=== PATIENT | female | born 1960 | race Caucasian/White ===

== ENCOUNTER 2020-07-09 15:24 | Outpatient (CLI) | payer OTHER, SELFPAY ==
--- NOTE | ~2020-07-09 | MM_ITS ---
EXAMINATION: MM screening jessica BI w brenda HISTORY: Screening TECHNIQUE: Craniocaudal and mediolateral oblique 3-D tomosynthesis images were obtained and synthetic 2-D images were generated. CAD analysis was submitted and interpreted. COMPARISON: Comparison to multiple prior studies sequentially, with oldest reviewed study dated 06/21. BREAST PARENCHYMAL COMPOSITION: Breast composed of scattered areas of fibroglandular density. FINDINGS: There is no evidence of suspicious mass, calcification, or architectural distortion to sugg est malignancy in either breast. There has been no suspicious interval change. IMPRESSION: 1. No mammographic evidence of malignancy. 2. Recommend routine screening mammography in one year. BI-RADS Category 1: Negative Reviewed, dictated and finalized at location A.
== END 2020-07-09 15:25 | disposition home or self-care (01) ==
PROVIDERS: PCP Family Medicine; Visit Provider Family Medicine
DX: Z12.31 Encounter for screening mammogram for malignant neoplasm of breast (principal)
CPT/HCPCS: 77063; 77067

== ENCOUNTER 2020-07-25 20:31 | Emergency (ER) | payer OTHER, SELFPAY ==
--- NOTE | ~2020-07-25 | CT_ITS ---
EXAMINATION: CT brain wo con EXAM DATE: 07/25/2020 21:33 INDICATION: Left arm paresthesia. Headache. TECHNIQUE: Spiral CT of the head was performed without contrast. Axial, coronal and sagittal images were reviewed. The dose-length product (DLP) for this examination was 605.33 mGy-cm. The exposure w as tailored according to patient size, and iterative reconstruction (ASIR) was used as additional dos e reduction technique. There is no prior study for comparison. FINDINGS: There is no acute intraparenchymal hemorrhage. No evidence of intraparenchymal brain mass lesion. No evidence of acute infarction. There is no mass effect or midline shift. The ventricles are normal in size. There are no extra-axial collections. There are no acute calvarial fractures. T he orbits are unremarkable. Soft tissue is unremarkable. The visualized sinuses and mastoid air mad[place] ls are well aerated. IMPRESSION: No acute intracranial findings. Reviewed, dictated and finalized at location A.
[2020-07-25 20:41] VITALS: BP 181/89; PULSE 85; RESP 18; TEMP 36.1; O2SAT 99
--- NOTE | 2020-07-25 21:04 | ED.EXTPRO ---
HPI - Extremity Problem General Chief complaint: Extremity Problem,Nontraumatic Stated complaint: left hand numbness Time Seen by Provider: 07/25/20 21:01 History of Present Illness HPI Narrative: Patient is a 60-year-old female complaining of left hand numbness that started prior to arrival lasting for approximately 15 to 20 minutes and now resolved. Patient denies any speech or visual disturbance, weakness, unsteady gait, chest pain, shortness of breath, abdominal pain, nausea vomiting or fever. Related Data Home Medications Medication Instructions Recorded Confirmed alprazolam 09/24/19 amitriptyline 09/24/19 fluticasone propionate INTRANASAL 09/24/19 metformin mg PO 09/24/19 metoprolol succinate PO 09/24/19 rivaroxaban [Xarelto] mg 09/24/19 cyclobenzaprine mg 07/25/20 dicyclomine mg 07/25/20 omeprazole 07/25/20 warfarin 07/25/20 Allergies Allergy/AdvReac Type Severity Reaction Status Date / Time amoxicillin AdvReac Unknown Itching Verified 07/25/20 21:39 cephalexin AdvReac Unknown Itching Verified 07/25/20 21:39 erythromycin base AdvReac Unknown itching Verified 07/25/20 21:39 midazolam AdvReac Unknown Itching Verified 07/25/20 21:39 Review of Systems Review of Systems: All systems reviewed & are unremarkable except as noted in HPI and below Constitutional: Constitutional: Denies body ache(s), Denies chills, Denies excessive sweating, Denies fatigue, Denies fever(s), Denies headache(s), Denies lethargy, Denies malaise, Denies weakness and Denies weight loss Eyes: Eyes: Denies blurry vision, Denies change in vision and Denies loss of vision ENT: Denies dizziness, Denies ear discharge, Denies headache(s), Denies lip swelling, Denies epistaxis, Denies nasal congestion, Denies neck pain, Denies throat swelling and Denies tongue swelling Cardiovascular: Cardiovascular: Denies chest pain, Denies chest pain at rest, Denies chest pain with activity, Denies diaphoresis, Denies rapid heart rate, Denies edema, Denies irregular heart rhythm, Denies lightheadedness, Denies palpitations, Denies dyspnea and Denies dyspnea on exertion Respiratory: Respiratory: Denies chest congestion, Denies cough, Denies hemoptysis, Denies dyspnea and Denies dyspnea on exertion Gastrointestinal: Gastrointestinal: Denies abdominal pain, Denies melena, Denies hematochezia, Denies diarrhea, Denies nausea, Denies vomiting and Denies hematemesis Musculoskeletal: Musculoskeletal: Denies abnormal gait, Denies deformity, Denies joint swelling, Denies limited range of motion and Denies neck pain Neurologic: Denies Abnormal speech present, Denies abnormal gait, Denies confusion, Denies dizziness, Denies headache(s), Denies focal weakness, Denies loss of vision, Denies Other visual disturbances, Denies Sensory deficit (Neuro) and Denies weakness Psychiatric: Psychiatric: Denies confusion, Denies depression, Denies auditory hallucinations, Denies homicidal ideation and Denies suicidal ideation Endocrine: Endocrine: Denies cold intolerance, Denies excessive sweating, Denies fatigue, Denies heat intolerance and Denies palpitations Hematologic/Lymphatic: Hematologic/Lymphatic: Denies easy bleeding and Denies easy bruising Allergic/Immunologic: Allergic/Immunologic: Denies lip swelling, Denies throat swelling and Denies tongue swelling [facility] Past Medical History Medical History (Updated 07/25/20 @ 22:42 by Angel Mir MD) Hypertension Prediabetes Thrombus Left kidney Surgical History Surgical History (System 05/10/20 @ 09:03 by Alfred Ford) H/O section H/O laparoscopy Related to fertility H/O tubal ligation Family History Family History (System 05/10/20 @ 09:03 by Alfred Ford) Father Hypertension Family history of elevated blood lipids Family history of diabetes mellitus in first degree relative Mother Family history of elevated blood lipids Family history of heart disease in male family member before age 55
--- NOTE | 2020-07-25 21:07 | ECG_ITS ---
Measurements Intervals [place] Rate: 77 P: 48 CT: 165 QRS: 5 QRSD: 101 T: 8 QT: 389 QTc: 441 Interpretive Statements SINUS RHYTHM VOLTAGE CRITERIA FOR LVH DELAYED PRECORDIAL R/S TRANSITION BORDERLINE T WAVE ABNORMALITY- ANT/INF LEADS BORDERLINE ECG Electronically Signed On 07-26-2020 7:05:09 CDT by Dontrell Salazar D.O.
[2020-07-25 21:43] VITALS: BP 167/94; PULSE 77; RESP 18; O2SAT 96
[2020-07-25 21:50] LABS: Basophils Absolute Auto 0.1 K/mm3 (0.0-0.1); Basophils Percent Auto 0.7 % (0.2-1.2); Eosinophils Absolute Auto 0.6 K/mm3 (0-0.3); Eosinophils Percent Auto 7.2 % (0-4.4); Hematocrit 42.9 % (37.0-47.0); Immature Granulocyte Absolute 0.03 K/mm3 (0.00-0.031); Immature Granulocyte Percent A 0.4 % (0-0.5); Lymphocytes Absolute Auto 2.45 K/mm3 (0.9-3.2); Lymphocytes Percent Auto 29.7 % (18.3-44.2); Mean Corpuscular HGB Conc 32.6 g/dl (32-36); Mean Corpuscular Volume 92.1 fl (80-100); Mean Platelet Volume 10.3 fl (7.4-10.4); Monocytes Absolute Auto 0.5 K/mm3 (0.1-0.6); Monocytes Percent Auto 6.2 % (2.6-8.5); Neutrophils Absolute Auto 4.6 K/mm3 (1.3-6.7); Neutrophils Percent Auto 55.8 % (45.5-73.1); Platelet Count Result 291 k/mm3 (150-375); Red Blood Count 4.66 M/mm3 (4.2-5.4); Red Cell Distribution Width 14.9 % (11.5-14.5); White Blood Count 8.3 K/mm3 (4.5-10.0)
[2020-07-25 22:03] LABS: Anion Gap 11 mmol/L (8-16); Blood Urea Nitrogen 18 mg/dL (7-17); Calcium 9.4 mg/dL (8.4-10.2); Carbon Dioxide 25 mmol/L (22-30); Chloride 103 mmol/L (98-107); Estimated CRCL calculation 63 ml/min; Estimated Glomerular Filt Rate > 60; Glucose 107 mg/dL (65-105); INR 1.4; Potassium 3.9 mmol/L (3.4-5.0); Prothrombin Time 16.6 Seconds (11.1-14.7); Sodium 139 mmol/L (137-145)
[2020-07-25 22:04] LABS: Partial Thromboplastin Time 37.7 SECONDS (22.3-36.8)
[2020-07-25 22:15] LABS: Troponin I < 0.012 ng/mL (0.000-0.034)
[2020-07-25 23:00] VITALS: BP 157/85; PULSE 75; RESP 14; O2SAT 94
== END 2020-07-25 23:00 | disposition home or self-care (01) ==
PROVIDERS: Emergency Provider Emergency Medicine; PCP Family Medicine
DX: R20.2 Paresthesia of skin (principal); Z79.01 Long term (current) use of anticoagulants; Z79.84 Long term (current) use of oral hypoglycemic drugs; I10 Essential (primary) hypertension; R73.03 Prediabetes; R94.31 Abnormal electrocardiogram [ECG] [EKG]
CPT/HCPCS: 36415; 70450; 80048; 84484; 85025; 85610; 85730; 93005; 99284

== ENCOUNTER 2020-08-09 16:22 | Outpatient (CLI) | payer OTHER, SELFPAY ==
--- NOTE | ~2020-08-09 | CT_ITS ---
EXAMINATION:CT lung screening DATE: 08/09/2020 16:44 INDICATION: Personal history of tobacco dependence. Current smoker with 44 pack year history. TECHNIQUE: Computed tomography (CT) of the chest was performed without intravenous contrast. Automate d exposure control and iterative reconstruction technique were employed. The dose-length product (DLP ) was 141.17 mGy-cm. COMPARISON: Chest CT 06/29/2019 FINDINGS: There is mild emphysema. There is mosaic attenuation in the lungs, likely small airways dis ease. Calcified right lung nodules and calcified right hilar and mediastinal lymph nodes are consiste nt with old granulomatous disease. There is a 6 mm nodule in right upper lobe. There are two 5 mm nod ules at the minor fissure. There is a 5 mm nodule at left major fissure. These findings are stable fr om 06/29/2019. No pleural effusion. The heart size is normal. There are coronary artery calcifications . No pericardial effusion. There is diffuse hepatic steatosis. Calcifications in the spleen are consi stent with old granulomatous disease. There is mild thoracic spondylosis. IMPRESSION: 1. Lung-RADS category 2: Benign appearance or behavior. Continue annual screening with noncontrast lo w-dose chest CT in 12 months. Reviewed, dictated and finalized at location A. ICAL POWER INSTALL TECHNICIAN IMPRESSION: 1. Lung-RADS category 2: Benign appearance or behavior. Continue annual screeni ng with noncontrast low-dose chest CT in 12 months.
== END 2020-08-09 16:23 | disposition home or self-care (01) ==
PROVIDERS: PCP Family Medicine; Visit Provider Family Medicine
DX: Z12.2 Encounter for screening for malignant neoplasm of respiratory organs (principal); Z87.891 Personal history of nicotine dependence
CPT/HCPCS: G0297

== ENCOUNTER 2020-11-06 12:26 | Outpatient (CLI) | payer OTHER, SELFPAY ==
--- NOTE | ~2020-11-06 | CT_ITS ---
EXAMINATION: CT abdomen pelvis wo con DATE: 11/06/2020 13:09 INDICATION: Left lower quadrant pain for 3 weeks TECHNIQUE: Computed tomography (CT) of the abdomen and pelvis was performed without intravenous contr ast. Automated exposure control and iterative reconstruction technique were employed. Exam dose: 676 .66 mGy-cm total exam DLP. COMPARISON: 10/27/2019 CT abdomen pelvis FINDINGS: There is some nodes along the minor fissure, likely benign. Calcified right hilar and media stinal nodes, consistent with old granulomatous disease. Chronic mild lateral left basilar lower lobe discoid scarring. No infiltrate or consolidation in the lower lung zones. Normal heart size. No pericardial or pleural effusion. There is hepatic steatosis with minimal pericholecystic sparing. No hepatic space-occupying mass lesi on is evident. No bile duct or pancreatic duct dilatation. No pancreatic mass lesion or calcification . There are occasional splenic calcified granulomas. No splenomegaly. Normal morphology of the adrenal glands. No renal mass lesion or urinary tract calculus or hydroureteronephrosis is evident. The urinary bladd er, uterus and adnexal areas are unremarkable. Normal caliber of the abdominal aorta. Retroaortic left renal vein. No intraperitoneal or retroperito seema or pelvic mass lesion or adenopathy or ascites. Normal appendix. Minimal sigmoid diverticulosis; no CT evidence of diverticulitis. No bowel obstruction, bowel wall th ickening, pneumatosis or intraperitoneal free air. No suspicious osteolytic or osteoblastic lesions. IMPRESSION: Hepatic steatosis Minimal sigmoid diverticulosis Reviewed, dictated and finalized at Location A. Reviewed, dictated and finalized at location A. ESS WORKER
== END 2020-11-06 12:27 | disposition home or self-care (01) ==
PROVIDERS: Family Provider Family Medicine; PCP Family Medicine; Visit Provider Family Medicine
DX: R10.9 Unspecified abdominal pain (principal); K76.0 Fatty (change of) liver, not elsewhere classified; K57.30 Diverticulosis of large intestine without perforation or abscess without bleeding
CPT/HCPCS: 74176

== ENCOUNTER 2020-11-10 18:31 | Emergency (ER) | payer OTHER, SELFPAY ==
[2020-11-10] VITALS (37 sets, daily range): BP systolic 116–157; BP diastolic 61–80; PULSE 65–88; RESP 12–28; TEMP 36.2; O2SAT 93–99
--- NOTE | ~2020-11-10 | CT_ITS ---
EXAMINATION: CTA brain carotid DATE: 11/10/2020 20:22 TESTING TECH INDICATION: Dizziness. Double vision. TECHNIQUE: Computed tomographic angiography (CTA) of the head was performed without and with 100 mL O mnipaque-350 intravenous contrast. CTA of the neck was performed with intravenous contrast. The dose- length product was 1012.35 mGy-cm. Maximum intensity projection and volume rendered 3D-reconstruction s were created by the technologist on a separate workstation. COMPARISON: CT head dated 11/10/2020. FINDINGS: HEAD CTA: There is atherosclerosis of the intracranial arteries without significant stenosis, occlusi on or aneurysm. Vertebral arteries are symmetric. NECK CTA: There is atherosclerosis of the aortic arch. There are atherosclerotic changes of the carot id bulbs bilaterally. No evidence for carotid dissection or occlusion. Vertebral arteries are symmetr ic. No lymphadenopathy. There are emphysematous changes in the lung apices. There is 35% stenosis of the proximal right internal carotid artery relative to normal distal artery lumen diameter (NASCET criteria). There is 60% stenosis of the proximal left internal carotid artery relative to normal distal artery lumen diameter. IMPRESSION: 1. 35% stenosis of the proximal right internal carotid artery relative to normal distal artery lumen diameter (NASCET criteria). 2. 60% stenosis of the proximal left internal carotid artery relative to normal distal artery lumen d iameter. 3: No evidence for significant stenosis, occlusion or aneurysm of the intracranial arteries. Reviewed, dictated and finalized at location A. ING TECH IMPRESSION: 1. 35% stenosis of the proximal right internal carotid artery relative to yayo l distal artery lumen diameter (NASCET criteria). 2. 60% stenosis of the proximal left internal carotid artery relative to normal distal artery lumen diameter. 3: No evidence for significant stenosis, occlusion or aneurysm of the intracran ial arteries.
--- NOTE | ~2020-11-10 | CT_ITS ---
EXAMINATION: CT brain wo con DATE: 11/10/2020 19:42 INDICATION: Dizziness TECHNIQUE: Computed tomography (CT) of the head was performed without intravenous contrast. The dose- length product was 605.33 mGy-cm. Automated exposure control and iterative reconstruction technique w ere employed. COMPARISON: CT dated 07/25/2020 FINDINGS: No acute intracranial hemorrhage, infarction, mass or mass effect. No ventriculomegaly or m idline shift. Basilar cisterns are patent. There is intracranial atherosclerosis. Normal ramos-white d ifferentiation. Paranasal sinuses and mastoids are pneumatized. No depressed skull fractures. No depr essed skull fractures. Midline sagittal images are unremarkable. There is intracranial atherosclerosi s. IMPRESSION: 1. No acute intracranial abnormality. Reviewed, dictated and finalized at location A. HER LIP READING
--- NOTE | ~2020-11-10 | XR_ITS ---
EXAMINATION: XR chest 2V 11/10/2020 19:13 INDICATION: Dizziness PROCEDURE: AP and lateral views of the chest COMPARISON: 07/29/2018 FINDINGS: The lungs are clear. The cardiomediastinal silhouette is within normal limits. There are no pleural effusions. There is no pneumothorax suspected. IMPRESSION: 1: NO ACUTE CARDIOPULMONARY DISEASE. Reviewed, dictated and finalized at location A. SS REPRESENTATIVE
--- NOTE | 2020-11-10 18:40 | ECG_ITS ---
Measurements Intervals [place] Rate: 73 P: 30 CO: 149 QRS: 9 QRSD: 96 T: 34 QT: 390 QTc: 430 Interpretive Statements SINUS RHYTHM VOLTAGE CRITERIA FOR LVH BORDERLINE ST-T WAVE ABNORMALITY- ANTERIOR LEADS BASELINE WANDER- I, II, III, V4-V6 BORDERLINE ECG Electronically Signed On 11-10-2020 19:24:44 LOCAL AREA NETWORK SYSTEMS ADMINSTRATOR by Dontrell Salazar D.O.
[2020-11-10 18:51] LABS: Basophils Absolute Auto 0.1 K/mm3 (0.0-0.1); Basophils Percent Auto 0.7 % (0.2-1.2); Eosinophils Absolute Auto 0.6 K/mm3 (0-0.3); Eosinophils Percent Auto 6.1 % (0-4.4); Hematocrit 49.6 % (37.0-47.0); Hemoglobin 16.1 g/dL (12.0-15.0); Immature Granulocyte Absolute 0.04 K/mm3 (0.00-0.031); Immature Granulocyte Percent A 0.4 % (0-0.5); Lymphocytes Absolute Auto 2.75 K/mm3 (0.9-3.2); Lymphocytes Percent Auto 27.3 % (18.3-44.2); Mean Corpuscular HGB Conc 32.5 g/dl (32-36); Mean Corpuscular Hemoglobin 29.4 pg (26-34); Mean Corpuscular Volume 90.5 fl (80-100); Mean Platelet Volume 10.6 fl (7.4-10.4); Monocytes Absolute Auto 0.6 K/mm3 (0.1-0.6); Monocytes Percent Auto 5.8 % (2.6-8.5); Neutrophils Percent Auto 59.7 % (45.5-73.1); Platelet Count Result 276 k/mm3 (150-375); Red Blood Count 5.48 M/mm3 (4.2-5.4); Red Cell Distribution Width 15.6 % (11.5-14.5); White Blood Count 10.1 K/mm3 (4.5-10.0)
[2020-11-10 19:03] LABS: Alanine Aminotransferase 264 U/L (4-35); Albumin Level 4.5 g/dL (3.5-5.1); Alkaline Phosphatase 151 U/L (38-126); Anion Gap 6 mmol/L (8-16); Aspartate Amino Transferase 115 U/L (14-36); Bilirubin,Total 0.8 mg/dL (0.2-1.3); Blood Urea Nitrogen 19 mg/dL (7-17); Calcium 9.6 mg/dL (8.4-10.2); Carbon Dioxide 27 mmol/L (22-30); Chloride 105 mmol/L (98-107); Estimated CRCL calculation 57 ml/min; Estimated Glomerular Filt Rate > 60; Glucose 138 mg/dL (65-105); Potassium 4.2 mmol/L (3.4-5.0); Sodium 138 mmol/L (137-145)
[2020-11-10] MEDS: SODIUM CHLORIDE 0.9% IV 1,000 ML 999 ML IV CONT ×2 (19:03→21:30)
[2020-11-10 19:14] LABS: Troponin I < 0.012 ng/mL (0.000-0.034)
--- NOTE | 2020-11-10 19:25 | ED.DIZZY ---
HPI - Dizziness General Chief Complaint: Syncope Stated Complaint: near syncope, light headed, nauseated Time Seen by Provider: 11/10/20 18:44 Source: patient Mode of arrival: wheelchair Limitations: no limitations History of Present Illness HPI Narrative: This is a 60 year old female that presents to the ER for dizziness that started around 5:45 tonight. Reports she had just eaten dinner and was seated. Reports she started to feel dizzy. Describes the dizziness as room spinning. Associated with nausea. Also reports blurry/double vision, especially in the right eye. Reports unsteady gait. She took a dose of her Alprazolam with little relief. Denies fever, vomiting, numbness or weakness. Related Data Home Medications Medication Instructions Recorded Confirmed alprazolam 1 mg TID PRN 09/24/19 amitriptyline 25 mg HS 09/24/19 fluticasone propionate INTRANASAL 09/24/19 metformin 500 mg PO BID 09/24/19 metoprolol succinate 50 mg PO BID 09/24/19 rivaroxaban [Xarelto] 20 mg BID 09/24/19 cyclobenzaprine 10 mg TID PRN 07/25/20 dicyclomine 10 mg DAILY 07/25/20 omeprazole 40 mg DAILY 07/25/20 Allergies Allergy/AdvReac Type Severity Reaction Status Date / Time amoxicillin AdvReac Unknown Itching Verified 11/10/20 19:06 cephalexin AdvReac Unknown Itching Verified 11/10/20 19:06 erythromycin base AdvReac Unknown itching Verified 11/10/20 19:06 midazolam AdvReac Unknown Itching Verified 11/10/20 19:06 Review of Systems Review of Systems: Narrative: CONSTITUTIONAL: Denies fever CARDIOVASCULAR: Denies chest pain RESPIRATORY: Denies dyspnea. GASTROINTESTINAL: Reports nausea. Denies vomiting GENITOURINARY: Denies dysuria NEUROLOGIC: Denies headache, numbness, or weakness. All systems reviewed & are unremarkable except as noted in HPI and below PMFSH Past Medical History Medical History (Updated 11/10/20 @ 22:05 by Patti Bojorquez PA-C) History of hyperlipidemia History of pulmonary embolism Hypertension Prediabetes Thrombus Left kidney Surgical History Surgical History (System 05/10/20 @ 09:03 by Alfred Ford) H/O section H/O laparoscopy Related to fertility H/O tubal ligation Family History Family History (System 05/10/20 @ 09:03 by Alfred Ford) Father Hypertension Family history of elevated blood lipids Family history of diabetes mellitus in first degree relative Mother Family history of elevated blood lipids Family history of heart disease in male family member before age 55 Sibling Family history of elevated blood lipids Family history of heart disease in male family member before age 55 Other Diabetes mellitus Family history of allergic disorder Family history of cardiovascular disease Social History Social History (Updated 11/10/20 @ 22:05 by Patti Bojorquez PA-C) Smoking status: Current every day smoker Alcohol intake: current Gender identity (if verbalized by the patient): Female Exam Narrative: Exam Narrative: GENERAL: Well-appearing, well-nourished, and in no acute distress. HEAD: Normocephalic, atraumatic. EYES: PERRLA. Patient does have trouble with lateral gaze in the right eye. ENT: Nares clear, no rhinorrhea or epistaxis. Mucous membranes moist. Oropharynx without tonsillar hypertrophy exudate or other lesions. Bilateral TMs pearly ramos non-bulging NECK: Supple. No adenopathy or masses. No carotid bruits or JVD CHEST: Clear to auscultation. No respiratory distress. No wheezes rales or rhonchi HEART: Regular rate and rhythm. No murmur heard. Normal peripheral pulses. EXTREMITIES: Normal range of motion. No edema. Strength equal in bilateral upper and lower extremities (5/5) SKIN: Warm, dry, no rash. NEURO: No focal deficits. Alert and oriented x3. Normal heel to hoffmann. Normal finger to nose on the left. Difficulty with finger to nose on the right PSYCH: Normal mood and affect Course Consultations Consultation #1: Spoke with Dr. Anthony, neurology at [facility]
[2020-11-10] MEDS: ONDANSETRON INJ 4 MG/2 ML VIAL IV PUSH (19:31)
[2020-11-10] MEDS: MECLIZINE HCL 25 MG TABLET PO ×2 (19:31→22:12)
[2020-11-10 19:43] LABS: Lipase 148 U/L (23-300)
[2020-11-10 20:07] LABS: INR 1.8; Prothrombin Time 21.8 Seconds (11.1-14.7)
[2020-11-10 20:09] LABS: Hepatitis B Surface Antigen Negative (Negative)
[2020-11-10 20:15] LABS: HAV RESULT Negative (Negative); Hepatitis B Core IgM Result Negative (Negative)
[2020-11-10 20:27] LABS: Hepatitis C Virus Antibody Negative (Negative)
--- NOTE | 2020-11-10 20:27 | PC.NURSE ---
patient back from CT. will do visual acuity.
--- NOTE | 2020-11-10 20:32 | PC.NURSE ---
patient back from CT. states that she ambulated to the restroom with her 's assistance but still dizzy. states that medications have not helped.
--- NOTE | 2020-11-10 21:00 | PC.NURSE ---
waiting for call back from consult. no further orders. alert. oriented. on phone playing games at times. in room.
[2020-11-10 21:54] LABS: Add Urine Microscopic? YES; Appearance Urine Clear (Clear); Bilirubin Urine Negative (Negative); Blood Urine Negative (Negative); Color Urine Colorless (Yellow); Glucose Urine UA 3+ mg/dL (Negative); Ketones Urine Negative (Negative); Leukocyte Esterase Ur Negative LEU/UL (Negative); Mucus Urine Rare /lpf; Nitrate Urine Negative (Negative); Protein Urine Negative (Negative); RBC Urine 0-2 /hpf (0-2); Squamous Epithelial Cell Urine Rare /hpf (Few); Urobilinogen Urine Negative mg/dL (<2.0); WBC Urine 0-3 /hpf
--- NOTE | 2020-11-10 22:42 | PC.NURSE ---
[id number] Lorenzo from [facility] access line calls to get triage info. Lorenzo states he will call back with a room number.
--- NOTE | 2020-11-10 23:13 | PC.NURSE ---
Randolph Ventura from [facility] access line calls back to give room number of [id number] at [facility].
[2020-11-11] VITALS (15 sets, daily range): BP systolic 105–129; BP diastolic 49–65; PULSE 66–81; RESP 15–22; TEMP 36.7; O2SAT 92–96
--- NOTE | 2020-11-11 01:25 | PC.NURSE ---
I called EMS at 0120 to get an update. They estimate the ambulance will come at 0245.
== END 2020-11-11 02:37 | disposition short-term general hospital (02) ==
PROVIDERS: Emergency Medicine; Physician Assistant; Emergency Provider Emergency Medicine; PCP Family Medicine
DX: R42 Dizziness and giddiness (principal); E78.5 Hyperlipidemia, unspecified; Z86.711 Personal history of pulmonary embolism; I10 Essential (primary) hypertension; R73.03 Prediabetes; F17.200 Nicotine dependence, unspecified, uncomplicated; I65.23 Occlusion and stenosis of bilateral carotid arteries; R94.31 Abnormal electrocardiogram [ECG] [EKG]
CPT/HCPCS: 36415; 70450; 70496; 70498; 71046; 80053; 80074; 81001; 83690; 84484; 85025; 85610; 85730; 93005; 96361; 96374; 99285; A9270; J2405; J7030; Q9967

== ENCOUNTER 2022-09-03 10:34 | Emergency (ER) | payer OTHER, SELFPAY ==
--- NOTE | ~2022-09-03 | CT_ITS ---
EXAMINATION: CT abdomen pelvis w con DATE: 09/03/2022 14:16 INDICATION: Left lower quadrant abdominal pain TECHNIQUE: Computed tomography (CT) of the abdomen and pelvis was performed with 100 CC Omnipaque 350 intravenous contrast. Automated exposure control and iterative reconstruction technique were employe d. Exam dose: 868.21 mGy-cm total exam DLP. COMPARISON: November 06, 2020 CT abdomen pelvis FINDINGS: There is minimal dependent atelectasis in the lower lung zones. Heart size is within normal limits. No pericardial or pleural effusion. Small sliding hiatal hernia. There is diffuse hepatic steatosis. No hepatic space-occupying mass lesion is evident. Occasional spl enic calcified granulomas. No splenomegaly. No hepatic, splenic, pancreatic or adrenal space-occupyin g mass lesion. The gallbladder is present. No gallbladder wall thickening or pericholecystic fluid or fat stranding. No bile duct or pancreatic duct dilatation. There is irregularity of both renal outlines likely due to chronic pyelonephritis. There are couple of right renal cysts, measuring up to approximately 9.6 mm maximal dimension. No ure teral calculus or hydroureteronephrosis. The urinary bladder, uterus and adnexal areas are unremarkab le. There is atherosclerotic calcification of the abdominal aorta without aneurysm. No intraperitoneal or retroperitoneal or pelvic mass lesion or adenopathy or ascites is noted. Normal appendix. No bowel obstruction, bowel wall thickening, pneumatosis or intraperitoneal free air . No suspicious osteolytic or osteoblastic lesions. IMPRESSION: Hepatic steatosis Right renal cysts Small sliding hiatal hernia Normal appendix Reviewed, dictated and finalized at Location A. Reviewed, dictated and finalized at location B. TEACHER
[2022-09-03 10:41] VITALS: BP 110/70; PULSE 94; RESP 18; TEMP 36.6; O2SAT 97
[2022-09-03 11:01] LABS: Basophils Percent Auto 0.3 % (0.2-1.2); Eosinophils Absolute Auto 0.1 K/mm3 (0-0.3); Eosinophils Percent Auto 0.8 % (0-4.4); Hematocrit 47.1 % (37.0-47.0); Hemoglobin 14.9 g/dL (12.0-15.0); Immature Granulocyte Absolute 0.02 K/mm3 (0.00-0.031); Immature Granulocyte Percent A 0.3 % (0-0.5); Lymphocytes Percent Auto 11.1 % (18.3-44.2); Mean Corpuscular HGB Conc 31.6 g/dl (32-36); Mean Corpuscular Hemoglobin 29.4 pg (26-34); Mean Corpuscular Volume 92.9 fl (80-100); Mean Platelet Volume 9.9 fl (7.4-10.4); Monocytes Absolute Auto 0.5 K/mm3 (0.1-0.6); Monocytes Percent Auto 6.8 % (2.6-8.5); Neutrophils Absolute Auto 5.8 K/mm3 (1.3-6.7); Neutrophils Percent Auto 80.7 % (45.5-73.1); Platelet Count Result 261 k/mm3 (150-375); Red Blood Count 5.07 M/mm3 (4.2-5.4); Red Cell Distribution Width 14.6 % (11.5-14.5); White Blood Count 7.2 K/mm3 (4.5-10.0)
[2022-09-03 11:02] LABS: Appearance Urine Clear (Clear); Bilirubin Urine Negative (Negative); Blood Urine Trace-intact (Negative); Color Urine Yellow (Yellow); Glucose Urine UA 3+ mg/dL (Negative); Ketones Urine Negative (Negative); Leukocyte Esterase Ur Trace LEU/UL (Negative); Nitrate Urine Negative (Negative); Protein Urine Negative (Negative); Urobilinogen Urine 0.2 mg/dL (<2.0)
[2022-09-03 11:07] LABS: Mucus Urine Rare /lpf; Squamous Epithelial Cell Urine Occasional /hpf (Few)
[2022-09-03 11:08] LABS: Add Urine Microscopic? YES
[2022-09-03 11:12] LABS: Alanine Aminotransferase 73 U/L (6-35); Albumin Level 4.5 g/dL (3.5-5.1); Alkaline Phosphatase 145 U/L (38-126); Anion Gap 11 mmol/L (8-16); Aspartate Amino Transferase 79 U/L (14-36); Bilirubin,Total 0.9 mg/dL (0.2-1.3); Blood Urea Nitrogen 12 mg/dL (7-17); Calcium 8.7 mg/dL (8.4-10.2); Carbon Dioxide 25 mmol/L (22-30); Chloride 101 mmol/L (98-107); Estimated CRCL calculation 64 ml/min; Estimated Glomerular Filt Rate > 60; Glucose 162 mg/dL (65-110); Lipase 74 U/L (23-300); Sodium 137 mmol/L (137-145)
--- NOTE | 2022-09-03 13:03 | ED.ABDPAIN ---
HPI - Abdominal Pain General Chief Complaint: Abdominal Pain Stated Complaint: left side pain x 2 weeks, flu A&B + Time Seen by Provider: 09/03/22 13:03 Source: patient Mode of arrival: ambulatory Limitations: no limitations History of Present Illness HPI narrative: Patient is a 62-year-old female with a history of hypertension, hyperlipidemia, prediabetes, DVT and left kidney thrombus, on chronic anticoagulation, presenting to the emergency department for evaluation of left flank and left lower quadrant abdominal pain. Patient reports increasing pain over the past week which is dull and aching in nature with radiation from the left flank into the left lower quadrant. No associated dysuria or hematuria. Patient reports fever, chills, congestion and nausea but did test positive for influenza A and influenza B this morning at her primary care physician's office. Patient was referred here for evaluation of the abdominal pain and flank pain due to her history of left kidney thrombus. Patient has been compliant with her anticoagulation. She denies any right upper quadrant abdominal pain, right lower quadrant abdominal pain, but does report mild periumbilical pain. No diarrhea or constipation. Related Data Home Medications Medication Instructions Recorded Confirmed alprazolam 1 mg tablet 1 mg TID PRN Anxiety 09/24/19 amitriptyline 25 mg tablet 25 mg HS 09/24/19 fluticasone propionate 50 intranasal 09/24/19 mcg/actuation nasal spray,suspension metformin 500 mg tablet,extended 500 mg PO BID 09/24/19 release 24 hr metoprolol succinate 50 mg 50 mg PO BID 09/24/19 tablet,extended release 24 hr rivaroxaban 20 mg tablet (Xarelto) 20 mg BID 09/24/19 cyclobenzaprine 10 mg tablet 10 mg TID PRN Muscle Spasm 07/25/20 dicyclomine 10 mg capsule 10 mg DAILY 07/25/20 omeprazole 40 mg capsule,delayed 40 mg DAILY 07/25/20 release Allergies Allergy/AdvReac Type Severity Reaction Status Date / Time amoxicillin AdvReac Unknown Itching Verified 09/03/22 13:01 cephalexin AdvReac Unknown Itching Verified 09/03/22 13:01 erythromycin base AdvReac Unknown itching Verified 09/03/22 13:01 midazolam AdvReac Unknown Itching Verified 09/03/22 13:01 Review of Systems Review of Systems: CONSTITUTIONAL: Reports fever and chills EYES: Denies visual changes, redness, or discharge. ENT: Reports rhinorrhea, congestion CARDIOVASCULAR: Denies chest pain, palpitations, or edema. RESPIRATORY: Denies cough or dyspnea. GASTROINTESTINAL: Reports abdominal pain, nausea, 1 episode of emesis yesterday, denies diarrhea or constipation GENITOURINARY: Denies dysuria or hematuria. SKIN: Denies rash or itching. MUSCULOSKELETAL: Denies back pain, joint pain, reports myalgias NEUROLOGIC: Reports mild headache, denies focal numbness or weakness PMFSH Past Medical History Medical History History of hyperlipidemia History of pulmonary embolism Hypertension Prediabetes Thrombus Left kidney Surgical History Surgical History H/O section H/O laparoscopy Related to fertility H/O tubal ligation Family History Family History Father Hypertension Family history of elevated blood lipids Family history of diabetes mellitus in first degree relative Mother Family history of elevated blood lipids Family history of heart disease in male family member before age 55 Sibling Family history of elevated blood lipids Family history of heart disease in male family member before age 55 Other Diabetes mellitus Family history of allergic disorder Family history of cardiovascular disease Social History Social History Smoking status: Current every day smoker Alcohol intake: current Gender identity (if verbalized by the patient):
[2022-09-03] MEDS: MORPHINE SULFATE (*CRX) 4 MG/ML INJ IV PUSH (13:28)
[2022-09-03] MEDS: ONDANSETRON INJ 4 MG/2 ML VIAL IV PUSH (13:28)
[2022-09-03] MEDS: SODIUM CHLORIDE 0.9% IV 1,000 ML 999 ML IV CONT (13:32)
== END 2022-09-03 16:26 | disposition home or self-care (01) ==
PROVIDERS: Emergency Medicine; Emergency Provider Emergency Medicine; PCP Family Medicine
DX: R10.32 Left lower quadrant pain (principal); R74.01 Elevation of levels of liver transaminase levels; J10.1 Influenza due to other identified influenza virus with other respiratory manifestations; I10 Essential (primary) hypertension; E78.5 Hyperlipidemia, unspecified; R73.03 Prediabetes; Z86.718 Personal history of other venous thrombosis and embolism; Z86.711 Personal history of pulmonary embolism; Z79.01 Long term (current) use of anticoagulants; K76.0 Fatty (change of) liver, not elsewhere classified; K44.9 Diaphragmatic hernia without obstruction or gangrene; N28.1 Cyst of kidney, acquired
CPT/HCPCS: 36415; 74177; 80053; 81001; 83690; 85025; 87077; 87086; 87088; 96361; 96374; 96375; 99284; J2270; J2405; J7030; Q9967

== ENCOUNTER 2023-03-03 13:36 | Outpatient (CLI) | payer OTHER, SELFPAY ==
--- NOTE | ~2023-03-03 | CT_ITS ---
CT Scan of the Chest without Contrast: Clinical Indication: Lung cancer screening, smoking history Technique: Contiguous sections were acquired throughout the chest without intravenous contrast. Dose reduction technique was used on this scan by utilizing automated exposure control and iterative recon struction technique. The dose-length product (DLP) was 95.17 mGy-cm. COMPARISON: 08/09/2020 Findings: There is no evidence of any significant mediastinal, hilar or axillary lymphadenopathy. Calcified med iastinal lymph nodes are present. There are atherosclerotic calcifications of the coronary arteries. There is no evidence of pleural or pericardial effusion. Stable nodule along the right minor fissure. Stable calcified right upper lobe granulomas.. Mild emph ysema noted. Images through the upper abdomen reveal no abnormalities. Impression: Lung RADS 2: Benign appearance. 12 month follow-up screening CT advised. Mild emphysema. Reviewed, dictated and finalized at [facility]. Impression: Lung RADS 2: Benign appearance. 12 month follow-up screening CT advised. Mild emphysema.
== END 2023-03-03 13:37 | disposition home or self-care (01) ==
LOC: ANHIMG 13:38
PROVIDERS: PCP Family Medicine; Visit Provider Nurse Practitioner Family
DX: Z12.2 Encounter for screening for malignant neoplasm of respiratory organs (principal); F17.210 Nicotine dependence, cigarettes, uncomplicated; J43.9 Emphysema, unspecified
CPT/HCPCS: 71271

== ENCOUNTER 2023-04-14 14:08 | Outpatient (CLI) | payer OTHER, SELFPAY ==
--- NOTE | ~2023-04-14 | MM_ITS ---
EXAMINATION: MM screening jessica BI w brenda HISTORY: Screening mammogram TECHNIQUE: Craniocaudal and mediolateral oblique 3-D tomosynthesis images were obtained and synthetic 2-D images were generated. CAD analysis was submitted and interpreted. COMPARISON: 07/09/2020 bilateral screening mammogram 07/11/2018 diagnostic right mammogram 06/21/2018 bilateral screening mammogram BREAST PARENCHYMAL COMPOSITION: There are scattered areas of fibroglandular density. FINDINGS: There is no evidence of suspicious mass, calcification, or architectural distortion to sugg est malignancy in either breast. There has been no suspicious interval change. IMPRESSION: 1. No mammographic evidence of malignancy. 2. Recommend routine screening mammography in one year. BI-RADS Category 1: Negative Reviewed, dictated and finalized at location A.
--- NOTE | ~2023-04-14 | DEXA_ITS ---
Bone Density Report Name: DELVIN ACOSTA Age: 62 Sex: Female Ethnicity: White Date of : 1960 Indication: postmenopausal; screening for osteoporosis; asthma or emphysema; Referring Provider: LANDY, DANIA Telles Study: Bone densitometry was performed. Exam Date: April 14, 2023 Accession number: [id number] Bone Density: Region BMD T-score Z-score Classification AP Spine(L1-L4) 1.104 0.5 2.1 Normal Femoral Neck (Left) 0.703 -1.3 0.1 Osteopenia Total Hip (Left) 0.901 -0.3 0.8 Normal Femoral Neck (Right) 0.730 -1.1 0.3 Osteopenia Total Hip (Right) 0.921 -0.2 0.9 Normal Total Hip Mean 0.911 -0.3 0.9 Normal World Health Organization criteria for BMD impression classify patients as: Normal (T-score at or above -1.0), Osteopenia (T-score between -1.0 and -2.5), or Osteoporosis (T-score at or below -2.5). 10-year Fracture Risk(1): Major Osteoporotic Fracture 7.6% Hip Fracture 0.6% Reported Risk Factors: [place] (), Neck BMD=0.703, BMI=33.6 (1) FRAX(R) Version 3.08. Fracture probability calculated for an untreated patient. Fracture probability may be lower if the patient has received treatment. Clinical Information Provided by Patient: Has used the following medications: Vitamin D Has the following medical conditions: Asthma or Emphysema Patient maximum height was 62 Menopause Age: 40 Onset of menses at age 13 Number of children 4 Impression: The patient has low bone mass, based on the Left Femoral Neck T-score. The patient has an estimated ten-year risk of hip fracture of 0.6% and an estimated ten-year risk of major fracture of 7.6%, based on the WHO FRAX algorithm. Discussion: BONE DENSITY IS LOW AT ONE OR MORE SKELETAL SITES. This patient's lowest T-score is low at one or more skeletal sites. It meets the World Health Organization's (WHO) criteria for ?low bone mass? (T-score between -1.0 and -2.5). The patient's 10-year risk of fracture as calculated by FRAX is less than the threshold where pharmacological therapy is recommended by the National Osteoporosis Foundation (NOF). However, all treatment decisions require clinical judgment and consideration of individual patient factors, including patient preferences, comorbidities, previous drug use, risk factors not captured in the FRAX model (e.g., frailty, falls, vitamin D deficiency, increased bone turnover, interval significant decline in bone density) and possible under or overestimation of fracture risk by FRAX. The patient should follow a healthful lifestyle (good nutrition with adequate calcium and vitamin D, and appropriate weight-bearing exercise). Follow-Up: Consider repeating this study in 2 to 3 years to reassess this patient's status, or sooner if there is some new clinical indication. Reported by:
== END 2023-04-14 14:09 | disposition home or self-care (01) ==
LOC: ANHIMG 14:10
PROVIDERS: PCP Family Medicine; Visit Provider Family Medicine
DX: Z12.31 Encounter for screening mammogram for malignant neoplasm of breast (principal); Z78.0 Asymptomatic menopausal state; M85.852 Other specified disorders of bone density and structure, left thigh; M85.851 Other specified disorders of bone density and structure, right thigh
CPT/HCPCS: 77063; 77067; 77080

== ENCOUNTER 2023-08-06 14:28 | Outpatient (CLI) | payer OTHER, SELFPAY ==
--- NOTE | ~2023-08-06 | XR_ITS ---
XR chest 2V DATE: 08/06/2023 14:48 INDICATION: Intermittent cough for one month. Ex-smoker. TECHNIQUE: PA and lateral views COMPARISON: 03/03/2023 CT lung screening FINDINGS: Heart size is within normal limits. There is minimal aortic unfolding. No hilar or mediasti nal enlargement. Mild bilateral pulmonary hyperinflation. No pulmonary infiltrate or consolidation, pleural effusion o r pulmonary vascular congestion or pneumothorax is detected. IMPRESSION: Mild bilateral hyperinflation; no active cardiopulmonary disease Reviewed, dictated and finalized at location B.
== END 2023-08-06 14:29 | disposition home or self-care (01) ==
PROVIDERS: PCP Family Medicine; Visit Provider Family Medicine
DX: R05.9 Cough, unspecified (principal); R91.8 Other nonspecific abnormal finding of lung field
CPT/HCPCS: 71046

== ENCOUNTER 2024-04-23 12:49 | Outpatient (CLI) | payer MEDICAID, SELFPAY ==
--- NOTE | ~2024-04-23 | CT_ITS ---
EXAMINATION: CT lung screening DATE: 04/23/2024 13:14 INDICATION: Nicotine dependence TECHNIQUE: Computed tomography (CT) of the chest was performed without intravenous contrast. Addition al 3D reconstructions utilizing coronal maximum intensity projection (MIP) were performed. Automated exposure control and iterative reconstruction technique were employed. The dose-length product was 15 5.58 mGy-cm. COMPARISON: 03/03/2023 FINDINGS: Mild emphysema. There are scattered bilateral calcite pulmonary nodules corresponds in the right uppe r lobe along with calcified right hilar and mediastinal lymph nodes consistent with old granulomatous disease. There is a new part solid nodule with groundglass opacity extending over approximately 1.4 cm region including a few <4 mm solid components at the medial aspect of the right apical segment. No pleural effusion. Heart size is normal. Atherosclerotic coronary artery calcification. Thoracic aort a is normal in caliber. No pathologically enlarged thoracic lymphadenopathy. A few splenic calcific a hoffmann consistent with old granulomatous disease. Diffuse hepatic steatosis. Mild thoracic spondylosis . IMPRESSION: 1. Lung-RADS category 4B: (Very suspicious, >15% chance of malignancy) PET-CT and/or tissue sampling depending on probably of malignancy and comorbidities. Recommend 3 month follow-up low-dose noncontra st chest CT. Reviewed, dictated and finalized at location A. IMPRESSION: 1. Lung-RADS category 4B: (Very suspicious, >15% chance of malignancy) PET-CT a nd/or tissue sampling depending on probably of malignancy and comorbidities. Re commend 3 month follow-up low-dose noncontrast chest CT.
== END 2024-04-23 12:50 | disposition home or self-care (01) ==
PROVIDERS: PCP Nurse Practitioner Family; Visit Provider Family Medicine
DX: Z12.2 Encounter for screening for malignant neoplasm of respiratory organs (principal); F17.210 Nicotine dependence, cigarettes, uncomplicated; R91.8 Other nonspecific abnormal finding of lung field
CPT/HCPCS: 71271

== ENCOUNTER 2024-05-30 11:47 | Outpatient (CLI) | payer OTHER, SELFPAY ==
--- NOTE | ~2024-05-30 | PE_ITS ---
EXAMINATION: PET skull to mid thigh DATE: 05/30/2024 14:08 INDICATION: Lung nodule. TECHNIQUE: Blood glucose level was 130 mg/dL. 10.310 mCi of 18-fluorodeoxyglucose (18-FDG) was admini stered i.v. Low dose computed tomography (CT) images were acquired from the base of the brain to the proximal thighs for attenuation correction and anatomic localization. Automated exposure control was employed. Dose-length product (DLP) was 1089 mGy-cm. Positron emission tomography (PET) images were a cquired in the same distribution. COMPARISON: Chest CT 04/23/2024, chest CT 03/03/23 FINDINGS: Head/neck: There are no pathologically enlarged lymph nodes. Chest: There is mild emphysema. Calcified right lung nodules and calcified right hilar and mediastina l lymph nodes are consistent with old granulomatous disease. There are clustered nodules in right swati g upper lobe measuring up to 5 mm without increased activity, probably benign. There is mild atelecta sis bilaterally. There is mild scarring at the lung apices without increased activity. No pleural eff usion. The heart size is normal. There are coronary artery calcifications. No pericardial effusion. Abdomen/pelvis/proximal thighs: There is diffuse hepatic steatosis. Calcifications in the spleen are consistent with old granulomatous disease. The gallbladder, pancreas, and adrenal glands are normal. There is cortical thinning of the kidneys. There are no dilated loops of bowel. There are no patholog ically enlarged lymph nodes. There is no ascites. There is no osseous malignancy. IMPRESSION: 1. Mild scarring without increased activity at left lung apex correlating with the recent chest CT ab normality. 2. Clustered nodules without increased activity in right lung upper lobe measuring up to 5 mm, new fr om 03/03/2023, probably benign. Noncontrast low-dose chest CT is recommended in 6 months. Reviewed, dictated and finalized at location A. IMPRESSION: 1. Mild scarring without increased activity at left lung apex correlating with the recent chest CT abnormality. 2. Clustered nodules without increased activity in right lung upper lobe measur ing up to 5 mm, new from 03/03/2023, probably benign. Noncontrast low-dose chest CT is recommended in 6 months.
[2024-05-30 12:32] LABS: Glucose Point of Care 130 mg/dl (65-105)
== END 2024-05-30 11:48 | disposition home or self-care (01) ==
LOC: ANHIMG 11:50
PROVIDERS: PCP Nurse Practitioner Family; Visit Provider Nurse Practitioner Family
DX: R93.89 Abnormal findings on diagnostic imaging of other specified body structures (principal); R91.8 Other nonspecific abnormal finding of lung field
CPT/HCPCS: 78815; A9552

== ENCOUNTER 2024-09-09 09:06 | Emergency (ER) | payer OTHER, SELFPAY ==
--- NOTE | ~2024-09-09 | XR_ITS ---
EXAMINATION: XR hand RT min 3V DATE: 09/09/2024 10:02 INDICATION: Right hand injury. Fall. TECHNIQUE: 3 views of right hand were obtained. COMPARISON: None. FINDINGS: Bone alignment is normal. No fracture. There is mild osteoarthritis of second metacarpophal angeal joint and some of the interphalangeal joints. IMPRESSION: 1. Mild polyarticular osteoarthritis. Reviewed, dictated and finalized at location A. [employer]
[2024-09-09 09:15] VITALS: BP 138/65; PULSE 84; RESP 18; TEMP 36.3; O2SAT 98
--- NOTE | 2024-09-09 09:52 | ED_ITS ---
HPI - Extremity Injury (Upper) General Chief Complaint: Extremity Injury, Upper Stated Complaint: Right Forearm/Hand Pain Time Seen by Provider: 09/09/24 09:52 Source: patient, RN notes reviewed and old records reviewed Mode of arrival: ambulatory Limitations: no limitations History of Present Illness HPI narrative: Patient presents with complaints of right hand pain. She reports that a couple of weeks ago she slipped and began to fall, caught self with outstretched right hand. She now has pain to the base of the right thumb that radiates into the thumb itself, a little bit of wrist pain. She does have some associated mild swelling. She retains full range of motion to the affected hand. Denies other injury and trauma. Has not been taking anything for her symptoms. Voices no other concerns or complaints at this time. Related Data Home Medications Medication Instructions Recorded Confirmed alprazolam 1 mg tablet 1 mg TID PRN Anxiety 09/24/19 amitriptyline 25 mg tablet 25 mg HS 09/24/19 fluticasone propionate 50 intranasal 09/24/19 mcg/actuation nasal spray,suspension metformin 500 mg tablet,extended 500 mg PO BID 09/24/19 release 24 hr rivaroxaban 20 mg tablet (Xarelto) 20 mg BID 09/24/19 cyclobenzaprine 10 mg tablet 10 mg TID PRN Muscle Spasm 07/25/20 dicyclomine 10 mg capsule 10 mg DAILY 07/25/20 omeprazole 40 mg capsule,delayed 40 mg DAILY 07/25/20 release alirocumab 150 mg/mL subcutaneous mg subcut 09/09/24 pen injector (Praluent Pen) gabapentin 300 mg capsule mg 09/09/24 Allergies Allergy/AdvReac Type Severity Reaction Status Date / Time amoxicillin AdvReac Unknown Itching Verified 09/09/24 09:21 cephalexin AdvReac Unknown Itching Verified 09/09/24 09:21 erythromycin base AdvReac Unknown itching Verified 09/09/24 09:21 midazolam AdvReac Unknown Itching Verified 09/09/24 09:21 Review of Systems Review of Systems: All systems reviewed & are unremarkable except as noted in HPI and below Constitutional: Constitutional: Reports no additional constitutional complaints ENT: Reports system reviewed and no additional complaints, except as documented Cardiovascular: Cardiovascular: Reports no additional cardiovascular complaints Respiratory: Respiratory: Reports no additional respiratory complaints Gastrointestinal: Gastrointestinal: Reports no additional gastrointestinal complaints Musculoskeletal: Musculoskeletal: Reports no additional musculoskeletal complaints and Reports as per HPI [facility] Past Medical History Medical History History of hyperlipidemia History of pulmonary embolism Hypertension Prediabetes Thrombus Left kidney Surgical History Surgical History H/O section H/O laparoscopy Related to fertility H/O tubal ligation Family History Family History Father Hypertension Family history of elevated blood lipids Family history of diabetes mellitus in first degree relative Mother Family history of elevated blood lipids Family history of heart disease in male family member before age 55 Sibling Family history of elevated blood lipids Family history of heart disease in male family member before age 55 Other Diabetes mellitus Family history of allergic disorder Family history of cardiovascular disease Social History Social History Smoking status: Current every day smoker Alcohol intake: current Gender identity (if verbalized by the patient): Female Comments At the time of my signature, I reviewed and agree with the nursing past medical, surgical, social, and family history. There is no relevant family history pertinent to the patient complaint. Exam Const: General: cooperative, no acute distress, alert and awake Orientation/consciousness: oriented to person, oriented to place and oriented to time HENMT: Head: normal to inspection Resp: Effort & Inspection: normal respiratory effort and able to speak in complete sentences Auscultation: clear to auscultation bilaterally, no crackles, no rales, no rhonchi and no wheezes Cardio: Palpation: normal PMI Rate: regular rate Rhythm: regular rhythm Heart sounds: S1 normal heart sound present and S2 normal heart sound present Neuro: General: oriented to person, oriented to place and oriented to time Cranial nerves: Yes CN's II-XII intact bilaterally Extrem: Right upper extremity: full ROM, normal capillary refill, wrist tenderness of the distal radius and Extremity exam: right hand normal capillary refill, neuromotor exam normal, neurosensory exam normal and tenderness of the palm on the radial aspect and proximally Psych: Appearance: grossly normal Thought process: Normal thought process present Insight: Good insight present (Psych) Judgement: Good judgement present (Psych) Course Course Level of Care: Express Care Visit Vital Signs Vital signs: Vital Signs Temperature 97.4 F L 09/09/24 09:15 Pulse Rate 84 09/09/24 09:15 Respiratory Rate 18 09/09/24 09:15 Blood Pressure 138/65 09/09/24 09:15 Pulse Oximetry 98 09/09/24 09:15 Oxygen Delivery Room Air 09/09/24 09:15 Temperature 97.4 F L 09/09/24 09:15 Pulse Rate 84 09/09/24 09:15 Respiratory Rate 18 09/09/24 09:15 Blood Pressure 138/65 09/09/24 09:15 Pulse Oximetry 98 09/09/24 09:15 Oxygen Delivery Room Air 09/09/24 09:15 Reviewed MDM - Extremity Injury (Upper) MDM Narrative Medical decision making narrative: No acute findings on x-ray. Symptoms likely secondary to soft tissue irritation. Start prednisone burst. RICE therapy. Follow with primary care provider. Emergency department for new or worse symptoms. Discharge instructions reviewed with patient, as well as provided in writing per nursing staff. The instructions also include specific and strict return/GO TO THE ER as well as f/u information. All questions have been answered, and the patient deny any further questions with discharge and discharge plan. Some parts of this dictation were generated by voice recognition software and may contain typographical and/or grammatical inaccuracies. Differential Diagnosis Differential diagnosis: Likely fracture of wrist and fracture of hand Medical Records Attestation: I reviewed the patient's medical records. Imaging Data Attestation: I personally reviewed and interpreted this imaging study as follows: My impression: No acute findings Radiologist's impression: [facility] [address] [place] [address] XRay Report Signed Patient: Karla Javed : 1960 MR#: [id number] Age: 64 Acct:[id number] Loc: [facility] ADM Date: 09/09/24Attending Dr: Ordering Physician: Cintia Quinn FNP Date of Service: 09/09/24 Procedure(s): XR hand RT min 3V Accession Number(s): [id number] cc: Cintia Quinn FNP; Peters, Shady Key APRN~ EXAMINATION: XR hand RT min 3V DATE: 09/09/2024 10:02 INDICATION: Right hand injury. Fall. TECHNIQUE: 3 views of right hand were obtained. COMPARISON: None. FINDINGS: Bone alignment is normal. No fracture. There is mild osteoarthritis of second metacarpophalangeal joint and some of the interphalangeal joints. IMPRESSION: 1. Mild polyarticular osteoarthritis. Reviewed, dictated and finalized at location A. [employer] Dictated By: Jesus Su MD 09/09/24 1007 Signed By: <Electronically signed by Jesus Su MD in OV> 09/09/24 1008 Discharge Plan Discharge Clinical Impression: Hand pain Qualifiers: Laterality: right Qualified Code(s): M79.641 - Pain in right hand Patient Disposition: Home, Self-Care Condition: Stable Instructions: Antibiotic Form, P.R.I.C.E. Treatment (ED) Additional Instructions: Take medications as prescribed. Follow-up primary care provider. Emergency department for any new or worsening symptoms. Patient Language: [place] Prescriptions: No Action alprazolam 1 mg tablet 1 mg TID PRN (Reason: Anxiety) amitriptyline 25 mg tablet 25 mg HS fluticasone propionate 50 mcg/actuation spray,suspension INTRANASAL metformin 500 mg tablet extended release 24 hr 500 mg PO BID Xarelto 20 mg tablet 20 mg BID gabapentin 300 mg capsule Praluent Pen 150 mg/mL pen injector SUBCUT tramadol 50 mg tablet 50 mg PO Q6H PRN (Reason: pain) Qty: 10 0RF cyclobenzaprine 10 mg tablet 10 mg TID PRN (Reason: Muscle Spasm) omeprazole 40 mg capsule,delayed release(DR/EC) 40 mg DAILY dicyclomine 10 mg capsule 10 mg DAILY Follow-up/Referrals: Peters,Shady Key APRN [Primary Care Provider] - 2 Weeks Time of Disposition: 10:17
== END 2024-09-09 10:25 | disposition home or self-care (01) ==
PROVIDERS: Emergency Provider Nurse Practitioner Family; PCP Nurse Practitioner Family
DX: M79.641 Pain in right hand (principal); E78.5 Hyperlipidemia, unspecified; I10 Essential (primary) hypertension; R73.03 Prediabetes; Z86.711 Personal history of pulmonary embolism; Z86.718 Personal history of other venous thrombosis and embolism
CPT/HCPCS: 73130; 99213; G0463